=== PATIENT | female | born 2000 | race Caucasian/White ===

== ENCOUNTER 2023-03-31 12:54 | Outpatient (AMB) | payer OTHER, SELFPAY ==
[2023-03-31 13:02] VITALS: BP 114/70; PULSE 82; RESP 14; O2SAT 71; BMI 21.5
--- NOTE | 2023-03-31 13:02 | MHC.OFFVIS ---
Intake Vital Signs 03/31/23 13:02 Height 5 ft 4 in Weight 125 lb BMI 21.5 BP 114/70 Blood Pressure Location Lt brachial Position Sitting Respiration 14 Pulse 82 Pulse Source Pulse Oximeter Pulse Oximetry (%) 71 L Oxygen Delivery Method Room Air Intake Visit Reasons: low back/SIJ pain Allergies No Known Allergies Allergy (Verified 03/31/23 13:03) Medication List - Last Reconciled 03/31/23 by Noa Plunkett LPN cyclobenzaprine 5 mg PO TID PRN naproxen 500 mg PO BID HPI low back/SIJ pain HPI Details 22-year-old female who presents today to the office for a low back and SIJ pain. The patient has a two-year history of pain on the left side of her lower back that radiates down to her left leg. She states that she fell down the stairs in June 2021. Subsequently, she underwent imaging that showed minimally displaced transverse process fractures at T12, L1, and L2 and a non-displaced fracture at L4. 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 She describes pain on the left side of her spine with aching and pins and needles sensations up to 6/10 in intensity. She is unable to sleep normally or function normally. She continues to be temporarily away from work. The pain is worse at night when it is 6-7/10 in intensity, and she is unable to get comfortable. He is taking naproxen 500 milligrams and cyclobenzaprine 5 milligrams. She underwent multiple rounds of physical therapy with minimal benefit. She also underwent massage therapy for three to four sessions with temporary relief. She wore a sacroiliac joint belt prescribed by Doctor Mas, but that did not provide much relief either. 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 Her work required bending and lifting. [facility] Medical History (Updated 04/08/23 @ 08:21 by Yo Joaquin MD) Disorder of sacrum Lumbar radiculitis Lumbar radiculopathy Review of Systems Const All systems reviewed & are unremarkable except as noted in HPI and below Physical Exam Vital Signs: Last Vital Signs Pulse 82 03/31/23 13:02 Resp 14 03/31/23 13:02 BP 114/70 03/31/23 13:02 Pulse Ox 71 L 10/16/23 13:02 Oxygen Delivery Method Room Air 03/31/23 13:02 BMI result Body Mass Index 21.5 General: Appears afebrile. Alert and oriented. Mood and affect appropriate. Follows and participates in conversation appropriately. Respiratory effort is unlabored. Able to transition from sit to stand unassisted. Ambulates with bilaterally normal heel strike and toe off. Lumbar extension reproduces the pain. Facet loading is positive on both sides. Forward flexion does not reproduce pain. Results Reviewed Results Reviewed: MRI results reviewed. Assessment & Plan Assessment & Plan (1) Fracture of transverse process of lumbar vertebra: Code(s): S32.009A - Unspecified fracture of unspecified lumbar vertebra, initial encounter for closed fracture Qualifiers: Encounter type: initial encounter Fracture type: closed Qualified Code(s): S32.009A - Unspecified fracture of unspecified lumbar vertebra, initial encounter for closed fracture (2) Lumbar radiculitis: Code(s): M54.16 - Radiculopathy, lumbar region Plan I ordered a CT scan of the lumbar spine for follow-up assessment of healing of her previously seen nondisplaced fractures in the transverse processes. I encouraged her to continue with strengthening and stretching exercises. I also recommended trying an inversion table, swimming, adequate pillows, and mattresses to improve the positioning of the spine. I will see her back once the CT is done to review the results and assess need for interventional therapy. Scribed for Dr. Joaquin by Mick Greenwood, medical secretary teacher, on 03/31/2023. I, Dr. Joaquin, have personally reviewed and agree with the information entered by the scribe. Orders: Orders CT lumbar spine wo IV con 03/31/23 S32.009A - Unspecified fracture of unspecified lumbar vertebra, initial encounter for closed fracture Coding Level of Care Code New Pt Level 4 (10107) Diagnoses Closed fracture of transverse process of lumbar vertebra, initial encounter S32.009A Encounter type: initial encounter Fracture type: closed Lumbar radiculitis M54.16
== END 2023-03-31 13:58 | disposition home or self-care (01) ==
PROVIDERS: PCP Physical Medicine & Rehabilitation; Visit Provider Internal Medicine
DX: S32.009A Unspecified fracture of unspecified lumbar vertebra, initial encounter for closed fracture (principal); M54.16 Radiculopathy, lumbar region
CPT/HCPCS: 99203

== ENCOUNTER → 2023-03-31 12:54 | Outpatient (BNVA) | payer OTHER, SELFPAY | PROVIDERS: PCP Physical Medicine & Rehabilitation; Visit Provider Internal Medicine ==